=== PATIENT | male | born 1990 | race African-American/Black ===

== ENCOUNTER 2016-04-06 18:28 | Emergency (ER) | payer OTHER ==
[~2016-04-06] VITALS: Ht 175.3 cm; Wt 86.2 kg
[~2016-04-06 18:28] MED LIST: ACYCLOVIR800 MG PO; CARAFATE1 GM PO; CIPRO500 MG PO; CLOTRIMAZOLE-BE15 GM TP; DOXYCYCLINE HY100 MG PO; ERYTHROMYCIN O3.5 GM LEFT EYE; HYCODAN SYRUP480 ML PO; KEFLEX500 MG PO; LOTRISONE15 GM TP; MOTRIN600 MG PO; MOTRIN800 MG PO; NAPROSYN500 MG PO; NAPROXEN500 MG PO; NOHOMEMEDS; NORCO 7.5/321 TABLET PO; PERCOCET 5/31 TABLET PO; PROTONIX40 MG PO; PSEUDOEPHEDRINE30 MG PO; ZANTAC150 MG PO; ZITHROMAX Z-PA250 MG PO; ZOFRAN ODT4 MG PO; ZOFRAN4 MG PO; no home
[2016-04-06 19:44] VITALS: BP 105/61
== END 2016-04-06 19:45 | disposition home or self-care (01) ==
LOC: EME 18:28
DX: R07.89 Other chest pain (principal); F17.200 Nicotine dependence, unspecified, uncomplicated
CPT/HCPCS: 71020; 93005; 99281; 99284

== ENCOUNTER 2016-08-14 22:19 | Emergency (ER) | payer OTHER ==
[~2016-08-14] VITALS: Ht 172.7 cm; Wt 81.8 kg
[2016-08-15 00:31] VITALS: BP 113/66
== END 2016-08-15 00:32 | disposition home or self-care (01) ==
LOC: EME 22:19
DX: S90.31XA Contusion of right foot, initial encounter (principal); W20.8XXA Other cause of strike by thrown, projected or falling object, initial encounter; Y99.0 Civilian activity done for income or pay; F17.200 Nicotine dependence, unspecified, uncomplicated
CPT/HCPCS: 73630; 99281; 99283

== ENCOUNTER 2016-10-23 22:25 | Emergency (ER) | payer OTHER ==
[~2016-10-23] VITALS: Ht 172.7 cm; Wt 77.3 kg
[2016-10-24 02:21] VITALS: BP 111/60
== END 2016-10-24 02:22 | disposition home or self-care (01) ==
LOC: EME 22:25
DX: M79.644 Pain in right finger(s) (principal); S69.91XA Unspecified injury of right wrist, hand and finger(s), initial encounter; W20.8XXA Other cause of strike by thrown, projected or falling object, initial encounter; F17.200 Nicotine dependence, unspecified, uncomplicated
CPT/HCPCS: 73140; 99281; 99283

== ENCOUNTER 2017-01-15 20:55 | Emergency (ER) | payer OTHER ==
[~2017-01-15] VITALS: Ht 172.7 cm; Wt 79.8 kg
[2017-01-15 21:50] LABS: ADD MEDTOX COMMENT Y; AMPHETAMINE NEGATIVE (500 ng/mL); BARBITURATES NEGATIVE (200 ng/mL); BENZODIAZEPINES NEGATIVE (150 ng/mL); COCAINE NEGATIVE (150 ng/mL); INTERNAL CONTROLS VALID? YES; METHADONE NEGATIVE (200 ng/mL); METHAMPHETAMINE NEGATIVE (500 ng/mL); OPIATES (MORPHINE) NEGATIVE (100 ng/mL); OXYCODONE NEGATIVE (100 ng/mL); PHENCYCLIDINE NEGATIVE (25 ng/mL); PROPOXYPHENE NEGATIVE (300 ng/mL); THC CANNABINOIDS PRESUMPTIVE POSITIVE (50 ng/mL); TRICYCLIC ANTIDEPRESSANTS NEGATIVE (300 ng/mL)
[2017-01-15 22:17] VITALS: BP 140/80
== END 2017-01-15 22:17 | disposition home or self-care (01) ==
LOC: EME 20:55
PROVIDERS: Physician Assistant
DX: F12.929 Cannabis use, unspecified with intoxication, unspecified (principal); R00.2 Palpitations; R06.00 Dyspnea, unspecified; F17.200 Nicotine dependence, unspecified, uncomplicated
CPT/HCPCS: 84999; 93005; 99281; 99284

== ENCOUNTER 2017-11-16 02:53 | Emergency (ER) | payer OTHER ==
[~2017-11-16] VITALS: Ht 175.3 cm; Wt 80.0 kg
[2017-11-16 03:40] LABS: HEMATOCRIT 40.1 % (38.0-50.0); HEMOGLOBIN 13.2 G/DL (12.5-16.6); MCH 29.3 PG (29.0-34.0); MCHC 32.9 G/DL (30.0-36.0); MCV 89.1 FL (86-99); PLATELET COUNT 188 K/uL (156-360); RBC DIS.WIDTH-CV 15.2 % (11.8-14.6); RBC DIS.WIDTH-SD 49.9 % (39-53); WHITE BLOOD COUNT 6.8 K/uL (4.1-10.2)
[2017-11-16 03:51] LABS: CHLORIDE 106 mEq/L (99-109); POTASSIUM 3.6 mEq/L (3.7-5.4); SODIUM 141 mEq/L (136-147)
[2017-11-16 03:53] LABS: GLUCOSE 74 mg/dL (70-99)
[2017-11-16 03:56] LABS: SERUM ETHYL ALCOHOL 210 mg/dL
[2017-11-16 03:57] LABS: CREATININE 1.2 mg/dL (0.6-1.3); GFR ESTIMATE (CALCULATED) > 59 mL/min/ (58.99-99999)
[2017-11-16 03:58] LABS: UREA NITROGEN (BUN) 11 mg/dL (9-23)
[2017-11-16 07:20] VITALS: BP 100/60
== END 2017-11-16 07:45 | disposition home or self-care (01) ==
LOC: EME → EDBD 02:53 → EME 02:53
PROVIDERS: Emergency Medicine
DX: F10.129 Alcohol abuse with intoxication, unspecified (principal); Y90.7 Blood alcohol level of 200-239 mg/100 ml; F41.9 Anxiety disorder, unspecified; F17.200 Nicotine dependence, unspecified, uncomplicated; Z91.030 Bee allergy status
CPT/HCPCS: 70450; 80048; 85027; 99281; 99284; G0480